=== PATIENT | male | born 1985 | race African-American/Black ===

== ENCOUNTER 2020-09-15 11:04 | Emergency (ER) | payer SELFPAY ==
[~2020-09-15] VITALS: Ht 175.3 cm; Wt 62.0 kg
[2020-09-15] MEDS ORDERED: FENTANYL CITRATE/PF 50MCG/ML 2ML VIAL IV ONE ×2 (11:15→11:45)
[2020-09-15] MEDS ORDERED: SODIUM CHLORIDE 0.9% 1,000 ML IV ONE (11:45)
[2020-09-15] MEDS ORDERED: PROPOFOL 200MG/20ML VIAL IV ONE (11:45)
[2020-09-15] MEDS ORDERED: ONDANSETRON HCL 4MG/2ML INJ IV ONE (11:45)
[2020-09-15 13:15] VITALS: BP 121/74
== END 2020-09-15 13:30 | disposition home or self-care (01) ==
LOC: ER 11:04
DX: S43.004A Unspecified dislocation of right shoulder joint, initial encounter (principal); F12.10 Cannabis abuse, uncomplicated; W18.30XA Fall on same level, unspecified, initial encounter; Y93.89 Activity, other specified; Y92.89 Other specified places as the place of occurrence of the external cause; Y99.8 Other external cause status
CPT/HCPCS: 23650; 73030; 96361; 96374; 99152; 99285; J2405; J2704; J3010; J7030